=== PATIENT | female | born 1985 | race Asian ===

== ENCOUNTER 2017-07-28 17:19 | Emergency (ER) | payer BC ==
[~2017-07-28] VITALS: Ht 162.6 cm; Wt 88.4 kg
[2017-07-28 17:23] VITALS: BP 117/78
[2017-07-28] MEDS ORDERED: SODIUM CHLORIDE 0.9% 1,000ML IVBOLUS ONE (18:00)
[2017-07-28] MEDS ORDERED: ONDANSETRON 2MG/ML, 2ML IVPush ONE (18:00)
[2017-07-28] MEDS ORDERED: SODIUM CHLORIDE FLUSH 10ML SYR IVF ONE (18:00)
[2017-07-28 18:28] LABS: HEMATOCRIT 41.6 % (34.6-47.8); HEMOGLOBIN 13.8 g/dL (11.7-16.4)
[2017-07-28 18:40] LABS: BLOOD UREA NITROGEN 13 mg/dL (7-18)
[2017-07-28 18:46] LABS: ASPARTATE AMINO TRANSFERASE 18 U/L (15-37)
[2017-07-28] MEDS ORDERED: METF850T2 PO (19:30)
[2017-07-28] MEDS ORDERED: LETR2.5T2 PO (19:30)
[2017-07-28] MEDS ORDERED: ONDANSETRON ODT 4 MG ONE (20:02)
[2017-07-28] MEDS ORDERED: ONDANSETRON ODT 4 MG PO ONE (20:30)
== END 2017-07-28 21:20 | disposition home or self-care (01) ==
LOC: ED 20:45
DX: R06.00 Dyspnea, unspecified (principal); N39.0 Urinary tract infection, site not specified
CPT/HCPCS: 36415; 71010; 80053; 81001; 84436; 84443; 84703; 85025; 87086; 93005; 99285; Q0162